=== PATIENT | male | born 1965 | race Caucasian/White ===

== ENCOUNTER 2019-03-18 10:26 | Day surgery (SDC) | payer BC ==
[2019-03-18 10:48] VITALS: BMI 24.1
[2019-03-18] MEDS ORDERED: BUPIVACAINE HCL/PF 0.5% (5MG/ML) 10 ML VIAL ONE (13:28)
[2019-03-18] MEDS ORDERED: ERYTHROMYCIN 0.5% OPHTHALMIC OINTMENT 3.5 GM TUBE ONE (13:28)
[2019-03-18] MEDS ORDERED: LIDOCAINE 1%/EPI 1:100000 (20 ML MULTI DOSE VIAL) ONE (13:28)
[2019-03-18] MEDS ORDERED: POVIDONE-IODINE 5% OPHTHALMIC PREP 30 ML SOLUTION ONE (13:28)
[2019-03-18] MEDS ORDERED: ONDANSETRON 4 MG/2 ML VIAL ONE (13:40)
[2019-03-18] MEDS ORDERED: MIDAZOLAM HCL 2 MG/2 ML SINGLE DOSE VIAL ONE (13:40)
[2019-03-18] MEDS ORDERED: PROPOFOL 20 ML ONE ×3 (13:50)
[2019-03-18 15:05] VITALS: TEMP 97.7
[2019-03-18 15:06] VITALS: BP 114/61; PULSE 59
--- NOTE | 2019-03-18 16:42 | OP ---
DATE OF OPERATION: DATE OF DICTATION: 03/18/2019 PREOPERATIVE DIAGNOSIS: Tumor/lesion, left medial canthus. POSTOPERATIVE DIAGNOSIS: Tumor/lesion, left medial canthus. PROCEDURES: 1. Examination under anesthesia. 2. Probing with a Virk probe, canalicular intubation. 3. Excision of tumor with overlying skin, left medial canthus, left upper lid. 4. Skin-muscle advancement flap from left upper lid to left medial canthus. SURGEON: Adrián Alvarez MD ANESTHESIA: Local with sedation. COMPLICATIONS: None. ESTIMATED BLOOD LOSS: 1-2 mL. OPERATIVE REPORT: Patient brought to the operating room and placed on the operating room table. Vital signs were monitored by Anesthesia. Tetracaine was placed in both eyes. The left upper punctum was dilated and intubated with a Virk probe and this was maintained in position during the case by the data analysis assistant. Incision was made curvilinear around the base of the lesion and the lesion was meticulously dissected out from the overlying tissues including the orbicularis. This was carried down deeply to the medial canthal tendon and just pericanalicular tissues, but did not enter the canaliculus itself. It was dissected and removed in toto. This left a defect in the junction of the left upper lid and left medial canthus. A skin- muscle advancement flap was developed in the nasal portion of the left upper lid and this was advanced toward the medial canthus. The flap was closed with interrupted 6-0 plain sutures, after antibiotic irrigation and hemostasis. Erythromycin eye ointment was placed in the eye and on the sutures and the patient was taken to the recovery room in stable condition. ADRIÁN ALVAREZ M.D. [id number] MTDD
--- NOTE | 2019-03-20 11:35 | PATH ---
Surgical Pathology Report Patient Name: JANIS CALLEJAS Med. Rec. #: [id number] /Age/Gender: 1965 (Age: 53) / M Account: [id number] Location: [facility] Taken: 03/18/2019 Received: 03/18/2019 Reported: 03/20/2019 Physicians: Jurgen Brown Specimen(s) Received MASS LEFT MEDIAL CANTHUS Clinical History Mass, left medial canthus Final Diagnosis MASS, MEDIAL CANTHUS, LEFT, EXCISION: EPIDERMAL INCLUSION CYST. Electronically Signed Ayanna Gillis M.D. Gross Description Received in formalin labeled "mass left medial canthus," is a 0.5 x 0.5 x 0.4 cm shine, polypoid portion of skin. The base is inked green and the specimen is bisected. The specimen is entirely submitted in one cassette. /03/19/2019 saudi03/19/2019
== END 2019-03-18 15:12 | disposition home or self-care (01) ==
LOC: FASU 10:26
PROVIDERS: ATTEND Ophthalmology
PROC: 0HX1XZZ Transfer Face Skin, External Approach (ICD-10-PCS; 2019-03-18)
PROC: 08BP0ZZ Excision of Left Upper Eyelid, Open Approach (ICD-10-PCS; principal; 2019-03-18 14:03)
DX: D21.0 Benign neoplasm of connective and other soft tissue of head, face and neck (principal)